=== PATIENT | male | born 1990 | race Caucasian/White ===

== ENCOUNTER 2019-03-11 18:27 | Emergency (ER) | payer MEDICAID ==
[~2019-03-11] VITALS: Ht 188 cm; Wt 128.0 kg
--- NOTE | 2019-03-11 19:07 | NUR ---
THE PT PRESENTS TO THE ED FOR "MY MEDICATIONS THAT I HAVE NOT BEEN ABLE TO GET SINCE COMMING HERE" THE PT DENIES ANY SI BUT DOES ADMIT TO BEING "ANGRY". THE PT HAS BEEN COOPERATIVE W/ STAFF.
[2019-03-11] MEDS ORDERED: HALOPERIDOL 5 MG/ML IM STA (19:33)
[2019-03-11 19:52] LABS: BASOPHILS # (AUTO) 0.06 x10^3/uL (0-0.1); BASOPHILS % (AUTO) 1 % (0-1); EOSINOPHILS # (AUTO) 0.26 x10^3/uL (0-0.4); EOSINOPHILS % (AUTO) 2 % (1-7); LYMPHOCYTES # (AUTO) 3.09 x10^3/uL (1-3.4); LYMPHOCYTES % (AUTO) 26 % (22-44); MD NO; MEAN CORPUSCULAR HEMOGLOBIN 28.9 pg (27.5-34.5); MEAN CORPUSCULAR HGB CONC 33.6 g/dL (33.2-36.2); MEAN CORPUSCULAR VOLUME 85.9 fL (81-97); MEAN PLATELET VOLUME 9.5 fL (7.4-10.4); MONOCYTES # (AUTO) 1.16 x10^3/uL (0.2-0.8); MONOCYTES % (AUTO) 10 % (2-9); NEUTROPHILS # (AUTO) 7.16 x10^3/uL (1.8-6.8); NEUTROPHILS % (AUTO) 61 % (42-75); PLATELET COUNT 231 x10^3/uL (130-400); RED BLOOD COUNT 5.43 x10^6/uL (4.38-5.82); RED CELL DISTRIBUTION WIDTH 13.6 % (9.4-14.8)
[2019-03-11] MEDS ORDERED: HALOPERIDOL 5 MG/ML ONE (19:54)
[2019-03-11 19:56] LABS: ALBUMIN 3.9 g/dL (3.4-5.0); ANION GAP 10 mmol/L (5-15); CALCIUM 8.9 mg/dL (8.5-10.1); CHLORIDE 109 mmol/L (98-107); CREATININE 1.15 mg/dL (0.7-1.3); SALICYLATE LEVEL < 1.7 mg/dL (2.8-20.0)
[2019-03-11 19:58] LABS: ALANINE AMINOTRANSFERASE 61 U/L (12-78); ALKALINE PHOSPHATASE 75 U/L (45-117); BILIRUBIN,TOTAL 0.8 mg/dL (0.2-1.0); TOTAL PROTEIN 7.3 g/dL (6.4-8.2)
[2019-03-11] MEDS ORDERED: PLEASE ENTER ALLERGIES MC SCH (20:00)
--- NOTE | 2019-03-11 20:00 | NUR ---
THE PT CONTINUES TO DENY SI OR HI DOES ADMIT TO STILL BEING ANGRY THAT HE DID NOT GET HIS MEDS AFTER D/C [place]. PER THE PA THE PT WILL NOT BE PLACED ON A L2K AT THIS TIME.
--- NOTE | 2019-03-11 20:06 | NUR ---
TELE PSYCH EXPLAINED TO THE PT AND THE PT MOTHER. THE PT WAS COOPERATIVE W/ THE IM INJECTION. INS FOR UA GIVEN TO THE PT. THE PT TO THE BR FOR UA.
[2019-03-11 20:07] VITALS: BP 139/69
--- NOTE | 2019-03-11 20:37 | NUR ---
THE PT STATED THAT HE IS "FEELING BETTER".
--- NOTE | 2019-03-11 20:41 | NUR ---
FOLLOWING THE PT STATING THAT HE WAS FEELING BETTER, HE CAME OUT OF THE ROOM STATED THAT "I DON'T LIKE THE MEDICATION IS MAKING ME SLEEPING AND I AM GOING HOME!!" THE PT RUSHED OUT OF THE ED. THE ERP WAS UPDATED.
[2019-03-11 20:49] LABS: AMPHETAMINE SCREEN, URINE Positive (Negative); BARBITURATE SCREEN, URINE Negative (Negative); BENZODIAZEPINE SCREEN, URINE Negative (Negative); CANNABINOID SCREEN, URINE Positive (Negative); COCAINE SCREEN, URINE Negative (Negative); METHADONE SCREEN, URINE Negative (Negative); OPIATE SCREEN, URINE Negative (Negative)
--- NOTE | 2019-03-11 20:58 | NUR ---
THE PT D/C ELOPED.
== END 2019-03-11 21:00 | disposition left against medical advice (07) ==
LOC: ED 20:08
DX: R45.851 Suicidal ideations (principal); F41.1 Generalized anxiety disorder; F32.9 Major depressive disorder, single episode, unspecified
CPT/HCPCS: 36415; 80053; 80307; 85025; 96372; 99284; J1630

== ENCOUNTER 2020-02-27 19:23 | Emergency (ER) | payer MEDICAID ==
[~2020-02-27] VITALS: Ht 190.5 cm; Wt 104.7 kg
--- NOTE | 2020-02-27 20:04 | NUR ---
MD AT BEDSIDE WITH PATIENT.
[2020-02-27] MEDS ORDERED: DIAZEPAM 5 MG TABLET ONE (20:23)
[2020-02-27] MEDS ORDERED: KETOROLAC 30 MG/1 ML ONE (20:24)
[2020-02-27] MEDS ORDERED: HYDROmorphone 1 MG/ML, 1ML INJ ONE (20:24)
[2020-02-27] MEDS ORDERED: DIAZEPAM 5 MG TABLET PO ONE (20:30)
[2020-02-27] MEDS ORDERED: KETOROLAC 30 MG/1 ML IM ONE (20:30)
[2020-02-27] MEDS ORDERED: HYDROmorphone 2 MG/ML, 1ML IM ONE (20:30)
--- NOTE | 2020-02-27 20:33 | NUR ---
PATIENT GIVEN MEDICATIONS. TOLERATED WELL. TIMEFRAME AFTER MEDICATION ADMINSTRATION EXPLAINED TO PATIENT. PATIENT AGREED TO WAIT 45MINS PRIOR TO LEAVING FOR UPDATED VITAL SIGNS AND TO ENSURE NO REACTION TO MEDICATIONS HAS OCCURED.
[2020-02-27 21:35] VITALS: BP 134/71
== END 2020-02-27 21:37 | disposition home or self-care (01) ==
LOC: ED 21:10
DX: M54.5 Low back pain (principal); G89.29 Other chronic pain
CPT/HCPCS: 96372; 99284; J1170; J1885; J7512

== ENCOUNTER 2021-01-13 14:51 | Emergency (ER) | payer MEDICAID, OTHER ==
[~2021-01-13] VITALS: Ht 190.5 cm; Wt 131.8 kg
[2021-01-13 15:18] VITALS: BP 173/96
--- NOTE | 2021-01-13 15:36 | NUR ---
SERVICE DELIVERY ANALYST: PT AMBULATORY TO ROOM FROM LOBBY
--- NOTE | 2021-01-13 15:42 | NUR ---
PT MBULATED TO ROOM FROM LOBBY. PT CO LEFT ELBOW PAIN AFTER TRYING TO STOP A PALLET FROM FALLING OFF A TRUCK AT WORK TODAY. PT STATED THAT HE INITIALLY DIDNT FEEL PAIN, BUT HE STARTED TO WORK MORE, STARTED FEELING A SHARP PAIN IN HIS LEFT ELBOW. PT DENIES ANY OTHER INJURY. CMS INTACT.
[2021-01-13] MEDS ORDERED: KETOROLAC 30 MG/1 ML IM ONE (16:00)
--- NOTE | 2021-01-13 16:04 | NUR ---
PT TO XRAY
[2021-01-13] MEDS ORDERED: KETOROLAC 30 MG/1 ML ONE (16:10)
--- NOTE | 2021-01-13 16:35 | NUR ---
TASK RN: Patient/Caregiver given discharge instructions and they have confirmed that they understand the instructions. Patient ambulatory with steady gait.
== END 2021-01-13 16:55 | disposition home or self-care (01) ==
LOC: ED 16:25
DX: S50.02XA Contusion of left elbow, initial encounter (principal); M25.512 Pain in left shoulder; F17.210 Nicotine dependence, cigarettes, uncomplicated; W18.30XA Fall on same level, unspecified, initial encounter; Y93.89 Activity, other specified; Y92.69 Other specified industrial and construction area as the place of occurrence of the external cause; Y99.8 Other external cause status
CPT/HCPCS: 73080; 96372; 99283; J1885